=== PATIENT | female | born 1980 | race Caucasian/White ===

== ENCOUNTER 2018-04-17 13:22 | Emergency (ER) | payer SELFPAY ==
[2018-04-17 13:28] VITALS: BP 133/85
--- NOTE | 2018-04-17 13:52 | ER Document Report ---
HPI - HPI Patient complains to provider of: Right-sided facial swelling Onset: Other - Few days Onset/Duration: Gradual Pain Level: 2 Context: 37-year-old female complaining of swelling to her right face and it is tender to the lateral aspect of her right nostril. She does not have a toothache. No fever or chills. She feels congested. Associated Symptoms: None Exacerbated by: Denies Relieved by: Denies Similar symptoms previously: No Recently seen / treated by doctor: No - ROS ROS below otherwise negative: Yes Systems Reviewed and Negative: Yes All other systems reviewed and negative Past Medical History - General Information source: Patient - Social History Smoking Status: Current Every Day Smoker Frequency of alcohol use: None Drug Abuse: None Lives with: Family Family History: Reviewed & Not Pertinent - Medical History Medical History: Negative Surgical Hx: Negative Vertical Provider Document - CONSTITUTIONAL Agree With Documented VS: Yes Exam Limitations: No Limitations General Appearance: No Apparent Distress - INFECTION CONTROL TRAVEL OUTSIDE OF THE [place] IN LAST 30 DAYS: No - HEENT HEENT: Normocephalic. negative: Pharyngeal Erythema, Tympanic Membrane Red Notes: Soft tissue swelling right cheek adjacent to the right nostril. Some indurated soft tissue but no palpable abscess in the soft tissue and no palpable intraoral abscess although there is dental decay in her mouth. - NECK Neck: Supple. negative: Lymphadenopathy-Left, Lymphadenopathy-Right - RESPIRATORY Respiratory: Breath Sounds Normal, No Respiratory Distress - CARDIOVASCULAR Cardiovascular: Regular Rate, Regular Rhythm - MUSCULOSKELETAL/EXTREMETIES Musculoskeletal/Extremeties: MAEW - NEURO Level of Consciousness: Awake - DERM Integumentary: No Rash Course - Vital Signs Vital signs: Temp Pulse Resp BP Pulse Ox 98.9 F 112 H 16 133/85 H 95 04/17/18 13:27 04/17/18 13:27 04/17/18 13:27 04/17/18 13:27 04/17/18 13:27 Discharge - Discharge Clinical Impression: Facial swelling, Dental decay Condition: Good Disposition: HOME, SELF-CARE Instructions: Dentist, Dental Infection or Abscess ([facility]), Penicillin V K (OM) , Trimethoprim-Sulfa (OM) Additional Instructions: Warm compress Motrin Tylenol Referral to dentistry as soon as possible Return to the emergency room if worse Antibiotics to treat the skin and also in case this is a dental abscess Prescriptions: Ibuprofen [Motrin 800 mg Tablet] 800 mg PO Q8HP PRN #30 tablet PRN Reason: Penicillin V Potassium [Penicillin Vk 500 mg Tablet] 500 mg PO QID #40 tablet Sulfamethoxazole/Trimethoprim [Sulfamethoxazole-Tmp Ds Tablet] 1 each PO BID # 14 tablet
== END 2018-04-17 14:06 | disposition home or self-care (01) ==
LOC: ER 13:22
DX: R22.0 Localized swelling, mass and lump, head (principal); K02.9 Dental caries, unspecified
CPT/HCPCS: 99282

== ENCOUNTER 2018-08-14 11:43 | Emergency (ER) | payer SELFPAY ==
--- NOTE | 2018-08-14 12:13 | ER Document Report ---
ED Medical Screen (RME) - General Chief Complaint: Facial Swelling Stated Complaint: FACIAL SWELLING, SORE THROAT Time Seen by Provider: 08/14/18 12:11 Mode of Arrival: Ambulatory Information source: Patient TRAVEL OUTSIDE OF THE [place] IN LAST 30 DAYS: No - HPI Patient complains to provider of: facial swelling; sore throat Onset: Yesterday - pt. with c/o sore throat for several days and woke up this am with R facial swelling - Related Data Allergies/Adverse Reactions: No Known Allergies Allergy (Verified 04/17/18 13:22) Past Medical History Renal/ Medical History: Denies: Hx Peritoneal Dialysis Physical Exam - Vital signs Vitals: Temp Pulse Resp BP Pulse Ox 98.7 F 90 16 129/77 H 94 08/14/18 11:51 08/14/18 11:51 08/14/18 11:51 08/14/18 11:51 08/14/18 11:51 Course - Vital Signs Vital signs: Temp Pulse Resp BP Pulse Ox 98.7 F 90 16 129/77 H 94 08/14/18 11:51 08/14/18 11:51 08/14/18 11:51 08/14/18 11:51 08/14/18 11:51
[2018-08-14 12:46] LABS: ABSOLUTE EOSINOPHILS # (AUTO) 0.1 10^3/uL (0.0-0.6); ABSOLUTE LYMPHOCYTES (AUTO) 1.8 10^3/uL (0.5-4.7); ABSOLUTE MONOCYTES (AUTO) 0.5 10^3/uL (0.1-1.4); ABSOLUTE NEUT (AUTO) 8.6 10^3/uL (1.7-8.2); BASOPHILS % (AUTO) 0.3 % (0-2); EOSINOPHILS % (AUTO) 0.8 % (0-6); HEMATOCRIT 41.9 % (36.0-47.0); HEMOGLOBIN 14.7 g/dL (12.0-15.5); LYMPHOCYTES % (AUTO) 16.3 % (13-45); MEAN CORPUSCULAR VOLUME 89 fl (80-97); MONOCYTES % (AUTO) 4.5 % (3-13); PLATELET COUNT 170 10^3/uL (150-450); RED BLOOD COUNT 4.73 10^6/uL (3.72-5.28); RED CELL DISTRIBUTION WIDTH 13.1 % (11.5-14.0); SEGMENTED NEUTROPHILS % (AUTO) 78.1 % (42-78); TOTAL CELLS COUNTED % (AUTO) 100 %; WHITE BLOOD COUNT 11.1 10^3/uL (4.0-10.5)
[2018-08-14 13:01] LABS: ALANINE AMINOTRANSFERASE 32 U/L (9-52); ALBUMIN 4.4 g/dL (3.5-5.0); ALKALINE PHOSPHATASE 79 U/L (38-126); ANION GAP 11 (5-19); ASPARTATE AMINO TRANSFERASE 33 U/L (14-36); BILIRUBIN,DIRECT 0.2 mg/dL (0.0-0.4); BILIRUBIN,TOTAL 0.6 mg/dL (0.2-1.3); BLOOD UREA NITROGEN 13 mg/dL (7-20); CALCIUM 9.7 mg/dL (8.4-10.2); CARBON DIOXIDE 28 mmol/L (22-30); CHLORIDE 104 mmol/L (98-107); GLUCOSE 90 mg/dL (75-110); POTASSIUM 4.6 mmol/L (3.6-5.0); SODIUM 142.9 mmol/L (137-145); TOTAL PROTEIN 7.4 g/dL (6.3-8.2)
--- NOTE | 2018-08-14 13:18 | ER Document Report ---
ED ENT - General Chief Complaint: Facial Swelling Stated Complaint: FACIAL SWELLING, SORE THROAT Time Seen by Provider: 08/14/18 12:11 Mode of Arrival: Ambulatory Notes: Patient says she has had a sore throat for about 3 or 4 days. Has not affected her swallowing. Also has pain right at the corner of the right nare for the same 3 or 4 days. She had some pain in her right jaw for couple of days but that went away yesterday. This morning, she has swelling of the right side of her face, so much so that it was causing her eye to be almost closed, although it is better now. Patient had exactly the same thing occurred to her in April of this year and was treated with antibiotics (Pen-Vee K and Septra) and resolved without complications. Patient has not followed up with a dentist, however. She has not had any fever. No other significant past medical history. On no regular prescription medications. TRAVEL OUTSIDE OF THE [place] IN LAST 30 DAYS: No - Related Data Allergies/Adverse Reactions: No Known Allergies Allergy (Verified 08/14/18 12:16) Past Medical History - General Information source: Patient - Social History Smoking Status: Current Every Day Smoker Chew tobacco use (# tins/day): No Frequency of alcohol use: None Drug Abuse: None Family History: Reviewed & Not Pertinent Patient has suicidal ideation: No Patient has homicidal ideation: No Past Surgical History: Reports: Hx Orthopedic Surgery - finger surgery Review of Systems - Review of Systems Notes: REVIEW OF SYSTEMS: CONSTITUTIONAL : Denies fever. EENT: See HPI. CARDIOVASCULAR: Denies chest pain. RESPIRATORY: Denies cough, chest congestion, or shortness of breath. GASTROINTESTINAL: Denies abdominal pain or nausea, vomiting, or diarrhea. GENITOURINARY: Denies difficulty or painful urinating, urinary frequency, blood in urine. MUSCULOSKELETAL: Denies back or neck pain. Denies joint pain or swelling. SKIN: Denies rash or skin lesions. NEUROLOGICAL: Denies LOC or altered mental status. Denies headache. Denies sensory loss or motor deficits. ALL OTHER SYSTEMS REVIEWED AND NEGATIVE. Physical Exam - Vital signs Vitals: Temp Pulse Resp BP Pulse Ox 98.7 F 90 16 129/77 H 94 08/14/18 11:51 08/14/18 11:51 08/14/18 11:51 08/14/18 11:51 08/14/18 11:51 Interpretation: Normal - Notes Notes: PHYSICAL EXAMINATION: GENERAL: Well-appearing, in no acute distress. Vital signs are all normal. Afebrile. Soft nontender swelling of the right cheek and lower face. HEAD: Atraumatic, normocephalic. EYES: Pupils equal round and reactive to light, extraocular movements intact. ENT: oropharynx clear without exudates. Moist mucous membranes. Patient's upper teeth and gingiva adjacent to the right nare is very tender to touch or press. No fluctuance noted. No drainage seen. NECK: Normal range of motion, supple. LUNGS: Breath sounds clear and equal bilaterally. HEART: Regular rate and rhythm without murmurs. ABDOMEN: Soft, nontender. No guarding or rebound. No masses. BACK: No tenderness throughout entire back. EXTREMITIES: Normal range of motion without pain. NEUROLOGICAL: Normal speech, normal gait. Normal sensory, motor, and reflex exams. Awake, alert, and oriented x3. PSYCH: Normal mood, normal affect. SKIN: Warm, dry, no rashes. Course - Re-evaluation Re-evalutation: 08/14/18 13:28 Reviewed the chart from the patient's previous visit in April and I am duplicating the treatment on that visit as her presentation today is identical to that prior visit. Encouraged patient to return if she has worsening swelling. - Vital Signs Vital signs: Temp Pulse Resp BP Pulse Ox 98.7 F 90 16 129/77 H 94 08/14/18 11:51 08/14/18 11:51 08/14/18 11:51 08/14/18 11:51 08/14/18 11:51 - Laboratory Result Diagrams: 08/14/18 12:22 08/14/18 12:22 Laboratory results interpreted by me: 08/14/18 12:22 WBC 11.1 H Seg Neutrophils % 78.1 H Absolute Neutrophils 8.6 H Discharge - Discharge Clinical Impression: Dental abscess Condition: Stable Additional Instructions: Dental Infection or Abscess You have an infection, perhaps an abscess (pus formation) of the gum around one of your teeth, which is probably decayed. If there is an abscess, it may drain on its own or it may need to be opened or lanced. Severe swelling or drainage around a tooth usually means a deep dental abscess which usually requires evaluation and treatment by a dentist or oral surgeon. Antibiotics may be prescribed while awaiting dental treatment. If you develop high fever with chills, worsening pain, or increasing swelling in the area, see a dentist or oral surgeon immediately or return to the Emergency Department immediately. ORAL NARCOTIC MEDICATION: You have been given a prescription for pain control. This medication is a narcotic. It's best taken with food, as nausea can result if taken on an empty stomach. Don't operate machinery or drive within six hours of taking this medication. Do not combine this medicine with alcohol, or with any medication which can cause sedation (such as cold tablets or sleeping pills) unless you get permission from the physician. Narcotics tend to cause constipation. If possible, drink plenty of fluids and eat a diet high in fiber and fruits. PENICILLIN V K: You have been given a prescription for Penicillin VK. Your physician has determined that this is the best antibiotic for your condition. Pen VK can be taken with meals, however more of the antibiotic gets into the bloodstream if it's taken on an empty stomach. Penicillin usually has no side effects. However, allergy to penicillins is common. If you have had an allergic reaction to any drug of the penicillin family, you should never take any other penicillin. Notify your doctor at once if you develop hives, itching, swelling, faintness, or shortness of breath. Sulfa Medications The antibiotic you have received is a member of the sulfa family. These antibiotics are commonly used for eye, ear, lung, or urinary infections. Sulfa antibiotics are best taken on an empty stomach. Extra glasses of water help the kidney process the antibiotic. Sulfas are not recommended for infants under two months, or for women near the end of . Occasional side effects can include nausea or diarrhea. Stop the medication and notify your doctor at once if you develop any skin rash, bruising, jaundice (yellow color of the skin), itching, swelling, joint pain, faintness, or shortness of breath, or if you note any other new or unusual symptoms. FOLLOW-UP CARE: You have been referred for follow-up care to the dentists listed below. Call the dentists office for an appointment as you were instructed or within the next two days. If you experience worsening or a significant change in your symptoms, notify the physician immediately or return to the Emergency Department at any time for re-evaluation. [facility] [address], [place] mornings, by appointment [facility] [address] [place] [address] [facility] [address] [facility] [address] [facility] [address] [email or web address] [address] [place] [address] Thursday- 8:00am to 5:00 pm Will see patients from other [facility]. Charges based on income and family size and accepts Medicare, Medicaid, and Insurances Will pull molars [facility] [address] Hours of Operation 8:00 am - 4:30 pm weekdays The following dental offices accept Medicaid: [facility] Dr. Mor[address] Dr. To Dr. Wild Dr. Baires Tony Lopes [place], and Rafi oral surgery Dr. Landry ([place]) Dr. Eng ([place]) [facility] Drs. Tavarez and Adalberto ([place]) Dr. Lee ([place]) [facility] Dr. Griffiths ([place]) Drs. Gottlieb and ([place]) Medicaid Care Line Prescriptions: Oxycodone HCl/Acetaminophen [Percocet 5-325 mg Tablet] 1 - 2 tab PO Q4H PRN #10 tablet PRN Reason: Penicillin V Potassium [Penicillin Vk 500 mg Tablet] 500 mg PO QID #30 tablet Sulfamethoxazole/Trimethoprim [Septra-Ds 800-160 mg Tablet] 1 tab PO BID #15 tablet
[2018-08-14 13:28] VITALS: BP 125/84
== END 2018-08-14 13:31 | disposition home or self-care (01) ==
LOC: ER 11:43
DX: K04.7 Periapical abscess without sinus (principal); J02.9 Acute pharyngitis, unspecified; J34.89 Other specified disorders of nose and nasal sinuses; F17.200 Nicotine dependence, unspecified, uncomplicated
CPT/HCPCS: 36415; 80053; 85025; 87070; 87880; 99283